=== PATIENT | male | born 1995 ===

== ENCOUNTER 2018-01-03 00:25 | Day surgery (SDC) | payer BC ==
[~2018-01-03] VITALS: Ht 188 cm; Wt 112.0 kg
[2018-01-03 13:05] LABS: PLATELET COUNT, AUTOMATED 244 K/uL (150-450)
[2018-01-03] MEDS ORDERED: ONDANSETRON 4 MG/2 ML VIAL ONE (13:17)
[2018-01-03] MEDS ORDERED: LIDOCAINE MPF 1% 5 ML VIAL ONE (13:17)
[2018-01-03] MEDS ORDERED: DEXAMETHASONE SOD 4 MG/ML VIAL ONE (13:17)
[2018-01-03] MEDS ORDERED: PROPOFOL EMUL(*) 10MG/ML 20 ML 20 ML ONE (13:17)
[2018-01-03] MEDS ORDERED: fentaNYL CITR 100 MCG/2 ML AMP ONE ×3 (13:18→15:21)
[2018-01-03 13:28] VITALS: BP 133/75
[2018-01-03] MEDS ORDERED: MINERAL OIL LIGHT 10 ML VIAL ONE (13:56)
[2018-01-03] MEDS ORDERED: NEOMYCIN/POLYMYX/BACITR 30 GM TP ONE (13:56)
[2018-01-03] MEDS ORDERED: NORMOSOL R SOLN(*) 1000 ML BAG 1,000 ML IV PRN (14:30)
[2018-01-03] MEDS ORDERED: LIDOCAINE/SOD BICARB 8.4% SYR ID ONE (14:30)
[2018-01-03] MEDS ORDERED: FAMOTIDINE 20 MG TAB PO ONE (14:30)
[2018-01-03] MEDS ORDERED: MIDAZOLAM 2 MG/2 ML VIAL IVP PRN (14:30)
[2018-01-03] MEDS ORDERED: KETAMINE HCL 200 MG/20 ML MDV ONE (14:30)
[2018-01-03] MEDS ORDERED: ceFAZolin(*) 2GM/D5W 50ML 50 ML IVPB ONE (14:30)
[2018-01-03] MEDS ORDERED: HYDR-4309 PO (15:43)
[2018-01-03] MEDS ORDERED: IBUP800T37 PO (15:43)
[2018-01-03] MEDS ORDERED: FAMO20TA28 PO (15:44)
[2018-01-03] MEDS ORDERED: CEPH500T7 PO (15:44)
[2018-01-03] MEDS ORDERED: APAP/HYDROCODONE 325/7.5 TAB ONE (16:03)
[2018-01-03] MEDS ORDERED: KETOROLAC 30 MG/ML VIAL ONE (16:10)
[2018-01-03 16:15] VITALS: BP 129/83
[2018-01-03 16:43] VITALS: BP 104/73
[2018-01-03 16:44] VITALS: BP 137/87
--- NOTE | 2018-01-04 14:26 | OPERATIVE REPORT 1 ---
EVENT DATE: January 03, 2018 SURGEON: Henry Riley MD ANESTHESIOLOGIST: Kaushal Cardoza MD ANESTHESIA: General. PREOPERATIVE DIAGNOSIS Glandular adhesions circumferentially around the sherman. POSTOPERATIVE DIAGNOSIS Glandular adhesions circumferentially around the sherman. PROCEDURES PERFORMED 1. Lysis of glandular adhesions. 2. Plastic revision and reconstruction of circumcision. DESCRIPTION OF PROCEDURE The patient was prepped and draped in the supine position. The glandular adhesions were released from the sherman. This left a defect on the glans penis dorsally and laterally. The penile skin was also opened where released from the glandular adhesions. The edges of the tissue were trimmed on the penile skin. The penile skin was reapproximated with interrupted 3-0 chromic catgut suture. Bleeding was controlled with spot coagulation and ligatures throughout. The glandular tissue was reapproximated dorsally and laterally with interrupted 4-0 chromic catgut suture. This satisfactorily revised and reconstructed the glans to its normal appearance as well as the penile skin. Estimated blood loss was a few milliliters. The wound was cleaned and dressed in the usual fashion. The patient tolerated the procedure satisfactorily and returned to the recovery room in satisfactory condition. This is a 22-year-old white male who was seen in the office this past week complaining of glandular adhesions. The patient states he has had a great deal of difficulty keeping the glans penis cleaned secondary to the collection of smegma and dirt where the adhesions were located almost circumferentially around the penis. The patient did a good job pretreatment of irrigating out the tunnels where the adhesions were located with the penile skin attaching to the sherman of the glans penis. These were released as previously noted in the report and reconstructed. The patient will be ready for discharge home when alert and functional. He is to force fluids, at least 2 L per day. Activities are as tolerated, to be careful to not injure his penile incisions. The patient has been instructed on polysporin therapy t.i.d. and p.r.n. The patient was instructed on showering, just to let the water run over the incisional areas, allow it to dry, and apply the polysporin and a light wrap. Plan followup in the office this coming Sunday. He is to call for an appointment. The patient will be discharged home on Keflex, Pepcid, Motrin, and Vernon therapy. The patient is to continue his ice packs as needed. MTDD
== END 2018-01-03 16:15 | disposition home or self-care (01) ==
LOC: OR 00:25
DX: N47.5 Adhesions of prepuce and glans penis (principal); K66.0 Peritoneal adhesions (postprocedural) (postinfection)
CPT/HCPCS: 36415; 54163; 85025; J1100; J1885; J2001; J2250; J2405; J2704; J3010; J3490; J0690